=== PATIENT | male | born 1975 | race Caucasian/White ===

== ENCOUNTER 2017-03-02 21:47 | Emergency (ER) | payer BC ==
[2017-03-02 21:54] VITALS: BP 178/91; PULSE 74; RESP 18; TEMP 97.4
[2017-03-02] MEDS ORDERED: PROPARACAINE 0.5% OPHTH DROPS 15 ML BTL ONE (21:57)
[2017-03-02] MEDS ORDERED: PROPARACAINE 0.5% OPHTH DROPS 15 ML BTL LEFT EYE STA (21:57)
[2017-03-02] MEDS ORDERED: DIPH,PERTUS(ACELL)TETVAC-LF 0.5 ML VIAL IM ONE (22:02)
[2017-03-02] MEDS ORDERED: TOBRAMYCIN 0.3% OPHTH DROPS 5 ML BTL RIGHT EYE STA (22:02)
--- NOTE | 2017-03-02 22:04 | ED ---
Eye Problem HPI - General Chief complaint: Eye Problems Stated complaint: eye injury Time Seen by Provider: 03/02/17 21:56 Source: patient, RN notes reviewed Mode of arrival: ambulatory Limitations: no limitations - History of Present Illness Initial comments: 42-year-old male presents emergency Department chief complaint right eye pain. Patient states that his dog jumped oncrush his eye. Patient states his happened a few hours ago. Patient states she's unsure when his last tetanus was. Denies any blurred vision. Patient states it's riding filling. - Related Data Previous Rx's Medication Instructions Recorded Tobramycin [Tobrex 0.3% Ophth Soln] 1 drop RIGHT EYE Q4HR #5 ml 03/02/17 Allergies Allergy/AdvReac Type Severity Reaction Status Date / Time Penicillins AdvReac Unknown Verified 03/02/17 21:54 Review of Systems ROS Statement: Those systems with pertinent positive or pertinent negative responses have been documented in the HPI. ROS Other: All systems not noted in ROS Statement are negative. Past Medical History Past Medical History: Hypertension History of Any Multi-Drug Resistant Organisms: None Reported Past Surgical History: No Surgical Hx Reported Past Psychological History: No Psychological Hx Reported Smoking Status: Never smoker Past Alcohol Use History: Occasional Past Drug Use History: None Reported General Exam Limitations: no limitations General appearance: alert, in no apparent distress Head exam: Present: atraumatic, normocephalic, normal inspection Eye exam: Present: PERRL, EOMI, conjunctival injection (mild right), other ( patient had relief with proparacaine drops. Fluorescein dye and Wood's lamp was used to evaluate the right eye there is a corneal abrasion in the 6 o'clock position). Absent: normal appearance, scleral icterus, periorbital swelling ENT exam: Present: normal exam, normal oropharynx, mucous membranes moist, TM's normal bilaterally, normal external ear exam Neck exam: Present: normal inspection. Absent: tenderness, meningismus, lymphadenopathy Respiratory exam: Present: normal lung sounds bilaterally. Absent: respiratory distress, wheezes, rales, rhonchi, stridor Cardiovascular Exam: Present: regular rate, normal rhythm, normal heart sounds. Absent: systolic murmur, diastolic murmur, rubs, gallop, clicks Course Vital Signs 03/02/17 21:52 Temperature 97.4 F L Pulse Rate 74 Respiratory 18 Rate Blood Pressure 178/91 O2 Sat by Pulse 97 Oximetry Medical Decision Making - Medical Decision Making 42-year-old male presented for right eye pain. Patient has a corneal abrasion. Patient be discharged on Tobrex eyedrops return parameters were discussed. Patient informed to follow-up with ophthalmology within 48 hours if no improvement. Disposition Clinical Impression: Corneal abrasion, right Disposition: HOME SELF-CARE Condition: Stable Instructions: Corneal Abrasion (ED) Additional Instructions: Please return to the Emergency Department if symptoms worsen or any other concerns. Prescriptions: Tobramycin [Tobrex 0.3% Ophth Soln] 1 drop RIGHT EYE Q4HR #5 ml Referrals: Pign Jaramillo III, MD [Primary Care Provider] - 1-2 days Time of Disposition: 22:04
== END 2017-03-02 22:28 | disposition home or self-care (01) ==
LOC: EC 21:47
DX: S05.01XA Injury of conjunctiva and corneal abrasion without foreign body, right eye, initial encounter (principal); Z23 Encounter for immunization; Z88.0 Allergy status to penicillin; W55.89XA Other contact with other mammals, initial encounter
CPT/HCPCS: 90471; 90715; 99283

== ENCOUNTER 2018-11-21 14:11 | Emergency (ER) | payer BC ==
[2018-11-21 15:17] LABS: Basophils % (A) 1 %; Eosinophils # (A) 0.2 k/uL (0-0.7); Eosinophils % (A) 3 %; HCT 47.7 % (39.0-53.0); HGB 16.1 gm/dL (13.0-17.5); Lymphocytes # (A) 2.3 k/uL (1.0-4.8); Lymphocytes % (A) 33 %; MCH 30.7 pg (25.0-35.0); MCHC 33.8 g/dL (31.0-37.0); MCV 90.9 fL (80.0-100.0); Mean Platelet Volume 6.5; Monocytes # (A) 0.5 k/uL (0-1.0); Monocytes % (A) 7 %; Neutrophils # (A) 3.8 k/uL (1.3-7.7); Neutrophils % (A) 54 %; Platelet Count 283 k/uL (150-450); RBC 5.25 m/uL (4.30-5.90); RDW 13.2 % (11.5-15.5)
--- NOTE | 2018-11-21 15:20 | ED ---
General Adult HPI <Faustino Lopez - Last Filed: 11/21/18 18:05> - General Source: patient Mode of arrival: ambulatory Limitations: no limitations <Zeeshan Hoffman - Last Filed: 11/21/18 21:18> - General Chief complaint: Dizziness Stated complaint: Dizziness Time Seen by Provider: 11/21/18 14:34 - History of Present Illness Initial comments: 43-year-old male patient past medical history of hypertension presents to ED today with approximately 8 hours of mild dizziness, lightheadedness. Patient states that this morning he had some blurry vision which resolved. Patient denies any other complaints. Patient denies chest pain or shortness of breath. Patient denies syncope or presyncope. Patient denies abdominal pain. Patient was seen by an urgent care who recommended that she presented to ED for further evaluation. Systemic: Pt denies fatigue, myalgia, fever/chills, rash. Pt denies weakness, night sweats, weight loss. Neuro: Pt denies headache, visual disturbances, syncope or pre-syncope. HEENT: Pt denies ocular discharge or irritation, otalgia, rhinorrhea, pharyngitis or notable lymphadenopathy. Cardiopulmonary: Pt denies chest pain, SOB, heart palpitations, dyspnea on exertion. Abdominal/GI: Pt denies abdominal pain, n/v/d. : Pt denies dysuria, burning w/ urination, frequency/urgency. Denies new onset urinary or bowel incontinence. MSK: Pt denies myalgia, loss of strength or function in extremities. Neuro: Pt denies new onset weakness, paresthesias. (Zeeshan Hoffman) - Related Data Home Medications Medication Instructions Recorded Confirmed Metoprolol/Hydrochlorothiazide 1 tab PO HS 11/21/18 11/21/18 [Lopressor Hct 50-25 mg Tab] Allergies Allergy/AdvReac Type Severity Reaction Status Date / Time Penicillins AdvReac Unknown Verified 11/21/18 14:43 Review of Systems ROS Other: All systems not noted in ROS Statement are negative. <Faustino Lopez - Last Filed: 11/21/18 18:05> ROS Other: All systems not noted in ROS Statement are negative. <Zeeshan Hoffman - Last Filed: 11/21/18 21:18> ROS Statement: Those systems with pertinent positive or pertinent negative responses have been documented in the HPI. Past Medical History Past Medical History: Hypertension History of Any Multi-Drug Resistant Organisms: None Reported Past Surgical History: No Surgical Hx Reported Past Psychological History: No Psychological Hx Reported Smoking Status: Never smoker Past Alcohol Use History: Occasional Past Drug Use History: None Reported <Zeeshan Hoffman - Last Filed: 11/21/18 21:18> General Exam <Faustino Lopez - Last Filed: 11/21/18 18:05> Limitations: no limitations <Zeeshan Hoffman - Last Filed: 11/21/18 21:18> - General Exam Comments Initial Comments: Constitutional: NAD, AOX3, Pt has pleasant affect. HEENT: NC/AT, trachea midline, neck supple, no lymphadenopathy. Posterior pharynx non erythematous, without exudates. External ears appear normal, without discharge. Mucous membranes moist. Eyes PERRLA, EOM intact. There is no scleral icterus. No pallor noted. Cardiopulmonary: RRR, no murmurs, rubs or gallops, no JVD noted. Lungs CTAB in anterior and posterior wilkerson. No peripheral edema. Abdominal exam: Abdomen soft and non-distended. Abdomen non-tender to palpation in all 4 quadrants. Bowel sounds active in LLQ. No hepatosplenomegaly. No ecchymosis Neuro: CN II-XII intact. No nuchal rigidity. No focal deficit or facial droop. MSK: No posterior calf tenderness bilaterally, homans sign negative bilaterally. Posterior tibialis and radial pulse +2 bilaterally. Sensation intact in upper and lower extremities. Full active ROM in upper and lower extremities, 5/5 stregnth. (Zeeshan Hoffman) Course <Faustino Lopez - Last Filed: 11/21/18 18:05> <Zeeshan Hoffman - Last Filed: 11/21/18 21:18> Vital Signs 11/21/18 11/21/18 11/21/18 14:13 16:56 18:17 Temperature 97.9 F 97.7 F Pulse Rate 59 L 61 Pulse Rate [ 64 Right Sitting] Pulse Rate [ 58 L Right Standing] Pulse Rate [ 58 L Right Supine] Respiratory 18 16 Rate Blood Pressure 163/89 151/84 Blood Pressure 152/96 [Right Arm Sitting] Blood Pressure 156/87 [Right Arm Standing] Blood Pressure 141/80 [Right Arm Supine] O2 Sat by Pulse 98 97 Oximetry - Reevaluation(s) Reevaluation #1: 11/21/18 18:06 PA supervision: I personally do a [id number] evaluation the patient and did discuss the findings with him and his . The patient currently is awake alert oriented 3 no distress. We did discuss the lab results. I do agree with the assessment and plan. (Faustino Lopez) Medical Decision Making - Lab Data Result diagrams: 11/21/18 14:50 11/21/18 14:50 <Faustino Lopez - Last Filed: 11/21/18 18:05> - Lab Data Result diagrams: 11/21/18 14:50 11/21/18 14:50 <Zeeshan Hoffman - Last Filed: 11/21/18 21:18> - Medical Decision Making 43-year-old male patient past medical history of hypertension presents to ED today with approximately 8 hours of mild dizziness, lightheadedness. Patient states that this morning he had some blurry vision which resolved. Patient denies any other complaints. Patient denies chest pain or shortness of breath. Patient denies syncope or presyncope. Patient denies abdominal pain. Patient was seen by an urgent care who recommended that she presented to ED for further evaluation. Patient vital signs stable, afebrile. Physical exam test for acute pathology, neurologic exam within normal limits. CBC, CMP noncompressive. Mild elevation in AST ALT. CT brain without contrast didn't display any acute pathology. Repeat neuro exam within normal limits. Orthostatic blood pressure measurements were taken. It is possible that patient 's dizziness is secondary to an orthostatic component. Patient is also mildly bradycardiac, it is also possible that patient's dizziness is secondary to mild bradycardia. Patient to follow up with primary care provider in 1-2 days for continued evaluation. Patient to return to ED if new symptoms develop or condition worsens in any way. Case discussed in depth with Dr. Lopez. (Zeeshan Hoffman) - Lab Data Lab Results 11/21/18 11/21/18 11/21/18 Range/Units 14:50 14:50 14:50 WBC 7.0 (3.8-10.6) k/uL RBC 5.25 (4.30-5.90) m/uL Hgb 16.1 (13.0-17.5) gm/dL Hct 47.7 (39.0-53.0) % MCV 90.9 (80.0-100.0) fL MCH 30.7 (25.0-35.0) pg MCHC 33.8 (31.0-37.0) g/dL RDW 13.2 (11.5-15.5) % Plt Count 283 (150-450) k/uL Neutrophils % 54 % Lymphocytes % 33 % Monocytes % 7 % Eosinophils % 3 % Basophils % 1 % Neutrophils # 3.8 (1.3-7.7) k/uL Lymphocytes # 2.3 (1.0-4.8) k/uL Monocytes # 0.5 (0-1.0) k/uL Eosinophils # 0.2 (0-0.7) k/uL Basophils # 0.0 (0-0.2) k/uL Sodium 139 (137-145) mmol/L Potassium 3.8 (3.5-5.1) mmol/L Chloride 104 (98-107) mmol/L Carbon Dioxide 25 (22-30) mmol/L Anion Gap 10 mmol/L BUN 18 (9-20) mg/dL Creatinine 0.92 (0.66-1.25) mg/dL Est GFR (CKD-EPI)AfAm >90 (>60 ml/min/1.73 sqM) Est GFR (CKD-EPI)NonAf >90 (>60 ml/min/1.73 sqM) Glucose 95 (74-99) mg/dL Calcium 9.7 (8.4-10.2) mg/dL Magnesium 1.8 (1.6-2.3) mg/dL Total Bilirubin 0.8 (0.2-1.3) mg/dL AST 63 H (17-59) U/L ALT 86 H (21-72) U/L Alkaline Phosphatase 89 (38-126) U/L Total Protein 8.5 H (6.3-8.2) g/dL Albumin 4.6 (3.5-5.0) g/dL Disposition <Faustino Lopez - Last Filed: 11/21/18 18:05> Is patient prescribed a controlled substance at d/c from ED?: No <Zeeshan Hoffman - Last Filed: 11/21/18 21:18> Clinical Impression: Dizziness Disposition: HOME SELF-CARE Condition: Stable Instructions (If sedation given, give patient instructions): Dizziness (ED) Additional Instructions: Patient to adhere to previously discussed treatment plan and will take medication(s) as directed. Patient to follow up with PCP in 1-2 days. Patient to return to ED if symptoms do not improve. Please follow-up with primary care provider tomorrow. Please return to ER if condition worsens in any way. Referrals: Ping Jaramillo III, MD [Primary Care Provider] - 1-2 days
[2018-11-21 15:30] LABS: ALT 86 U/L (21-72); AST 63 U/L (17-59); Albumin 4.6 g/dL (3.5-5.0); Alkaline Phosphatase 89 U/L (38-126); Anion Gap 10 mmol/L; Blood Urea Nitrogen 18 mg/dL (9-20); Calcium 9.7 mg/dL (8.4-10.2); Carbon Dioxide 25 mmol/L (22-30); Chloride 104 mmol/L (98-107); Glucose 95 mg/dL (74-99); Potassium 3.8 mmol/L (3.5-5.1); Sodium 139 mmol/L (137-145); Total Bilirubin 0.8 mg/dL (0.2-1.3); Total Protein 8.5 g/dL (6.3-8.2)
--- NOTE | 2018-11-21 16:04 | CT ---
EXAMINATION TYPE: CT brain wo con DATE OF EXAM: 11/21/2018 COMPARISON: None HISTORY: Patient complains of dizziness and blurry vision CT DLP: 1023.4 mGycm. Automated Exposure Control for Dose Reduction was Utilized. TECHNIQUE: CT scan of the head is performed without contrast. FINDINGS: There is no acute intracranial hemorrhage, mass effect, or midline shift identified. The ventricles and sulci are within normal limits in size. The globes are intact and the visualized sin uses are clear. Cerebral vascular calcifications are present. IMPRESSION: No acute intracranial hemorrhage, mass effect, or midline shift is seen.
[2018-11-21] MEDS ORDERED: POTASSIUM CHLORIDE ER 10 MEQ TAB.ER.PRT PO STA (17:44)
[2018-11-21 18:19] VITALS: BP 151/84; PULSE 61; RESP 16; TEMP 97.7
--- NOTE | 2018-11-23 01:57 | ED ---
Medical Decision Making - Medical Decision Making At recommendation of attending Physician Dr. Lopez. Another possible etiology of patients dizziness is potassium being borderline low. Patient prescribed 1 week of potassium supplementation until follow up with PCP. - Lab Data Result diagrams: 11/21/18 14:50 11/21/18 14:50 Lab Results 11/21/18 11/21/18 11/21/18 Range/Units 14:50 14:50 14:50 WBC 7.0 (3.8-10.6) k/uL RBC 5.25 (4.30-5.90) m/uL Hgb 16.1 (13.0-17.5) gm/dL Hct 47.7 (39.0-53.0) % MCV 90.9 (80.0-100.0) fL MCH 30.7 (25.0-35.0) pg MCHC 33.8 (31.0-37.0) g/dL RDW 13.2 (11.5-15.5) % Plt Count 283 (150-450) k/uL Neutrophils % 54 % Lymphocytes % 33 % Monocytes % 7 % Eosinophils % 3 % Basophils % 1 % Neutrophils # 3.8 (1.3-7.7) k/uL Lymphocytes # 2.3 (1.0-4.8) k/uL Monocytes # 0.5 (0-1.0) k/uL Eosinophils # 0.2 (0-0.7) k/uL Basophils # 0.0 (0-0.2) k/uL Sodium 139 (137-145) mmol/L Potassium 3.8 (3.5-5.1) mmol/L Chloride 104 (98-107) mmol/L Carbon Dioxide 25 (22-30) mmol/L Anion Gap 10 mmol/L BUN 18 (9-20) mg/dL Creatinine 0.92 (0.66-1.25) mg/dL Est GFR (CKD-EPI)AfAm >90 (>60 ml/min/1.73 sqM) Est GFR (CKD-EPI)NonAf >90 (>60 ml/min/1.73 sqM) Glucose 95 (74-99) mg/dL Calcium 9.7 (8.4-10.2) mg/dL Magnesium 1.8 (1.6-2.3) mg/dL Total Bilirubin 0.8 (0.2-1.3) mg/dL AST 63 H (17-59) U/L ALT 86 H (21-72) U/L Alkaline Phosphatase 89 (38-126) U/L Total Protein 8.5 H (6.3-8.2) g/dL Albumin 4.6 (3.5-5.0) g/dL Disposition Clinical Impression: Dizziness Disposition: HOME SELF-CARE Condition: Stable Instructions (If sedation given, give patient instructions): Dizziness (ED) Additional Instructions: Patient to adhere to previously discussed treatment plan and will take medication(s) as directed. Patient to follow up with PCP in 1-2 days. Patient to return to ED if symptoms do not improve. Please follow-up with primary care provider tomorrow. Please return to ER if condition worsens in any way. Prescriptions: Potassium Chloride ER [K-Dur 10] 10 meq PO DAILY 7 Days #7 tab Is patient prescribed a controlled substance at d/c from ED?: No Referrals: Ping Jaramillo III, MD [Primary Care Provider] - 1-2 days
== END 2018-11-21 18:20 | disposition home or self-care (01) ==
LOC: EC 14:11
DX: R42 Dizziness and giddiness (principal); I10 Essential (primary) hypertension; Z79.899 Other long term (current) drug therapy; Z88.0 Allergy status to penicillin
CPT/HCPCS: 36415; 70450; 80053; 83735; 85025; 93005; 99284

== ENCOUNTER 2021-08-02 18:42 | Emergency (ER) | payer BC ==
--- NOTE | 2021-08-02 19:58 | ED ---
General Adult HPI - General Chief complaint: Upper Respiratory Infection Stated complaint: Fever,Congestion,Headache Time Seen by Provider: 08/02/21 19:44 Source: patient, RN notes reviewed, old records reviewed Mode of arrival: ambulatory Limitations: no limitations - History of Present Illness Initial comments: Well-appearing 46-year-old male, alert and oriented 4, presents to the emergency room with complaints of headache, congestion and fever since last night. He states that he took an at home Covid test and it was positive. Patient states that he did get vaccinated against Covid in November. 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 Her test was negative. He states he has had a decreased appetite, some nausea but no vomiting. He does have a history of hypertension. His A1c has been elevated at 7.5 however his PCP has not diagnosed him as diabetic yet. He states that he does take Jardience. -: days(s) (2) Location: head Severity scale (1-10): 3 Quality: aching Consistency: constant Improves with: none Associated Symptoms: cough, fever/chills, headaches, other (congestion) - Related Data Home Medications Medication Instructions Recorded Confirmed Metoprolol/Hydrochlorothiazide 1 tab PO HS 11/21/18 11/21/18 [Lopressor Hct 50-25 mg Tab] Previous Rx's Medication Instructions Recorded Potassium Chloride ER [K-Dur 10] 10 meq PO DAILY 7 Days #7 tab 11/23/18 Allergies Allergy/AdvReac Type Severity Reaction Status Date / Time Penicillins AdvReac Unknown Verified 08/02/21 19:06 Review of Systems ROS Statement: Those systems with pertinent positive or pertinent negative responses have been documented in the HPI. ROS Other: All systems not noted in ROS Statement are negative. Past Medical History Past Medical History: Hypertension History of Any Multi-Drug Resistant Organisms: None Reported Past Surgical History: No Surgical Hx Reported Past Psychological History: No Psychological Hx Reported Smoking Status: Never smoker Past Alcohol Use History: Occasional Past Drug Use History: None Reported General Exam Limitations: no limitations General appearance: alert, in no apparent distress Head exam: Present: atraumatic, normocephalic, normal inspection Eye exam: Present: normal appearance, EOMI. Absent: scleral icterus, conjunctival injection, periorbital swelling ENT exam: Present: normal exam, normal oropharynx, mucous membranes moist Neck exam: Present: normal inspection, full ROM. Absent: tenderness, meningismus, lymphadenopathy Respiratory exam: Present: normal lung sounds bilaterally. Absent: respiratory distress, wheezes, rales, rhonchi, stridor Cardiovascular Exam: Present: regular rate, normal rhythm, normal heart sounds. Absent: systolic murmur, diastolic murmur, rubs, gallop, clicks GI/Abdominal exam: Present: soft, normal bowel sounds. Absent: distended, tenderness, guarding, rebound, rigid Back exam: Present: normal inspection, full ROM. Absent: tenderness, CVA tenderness (R), CVA tenderness (L), rash noted Neurological exam: Present: alert, oriented X3 Psychiatric exam: Present: normal affect, normal mood Skin exam: Present: warm, dry, intact, normal color. Absent: rash, cyanosis, diaphoretic Course Vital Signs 08/02/21 08/02/21 19:04 23:19 Temperature 100.0 F H 98.9 F Pulse Rate 66 62 Respiratory 19 16 Rate Blood Pressure 147/74 139/88 O2 Sat by Pulse 97 97 Oximetry Medical Decision Making - Medical Decision Making This is a well-appearing 46-year-old male, alert and oriented 4, developed symptoms of fever cough and congestion last night. Today he took an at home Covid test that was positive. He was given monoclonal antibodies due to his history of hypertension and obesity. His vital signs are stable. He'll be discharged home and directed to return to the emergency room with any new or worsening symptoms. Follow up with his primary care doctor in 1 week. Self quarantine for 10 days from symptom onset. Case discussed with Dr. Lomas Disposition Clinical Impression: COVID-19 Disposition: HOME SELF-CARE Instructions (If sedation given, give patient instructions): Coronavirus Disease 2019 (COVID-19) Additional Instructions: Take Tylenol and/or Motrin as needed for body aches or fevers. Self quarantine for 10 days after symptom onset and 24 hours without fever. Return to the emergency room with any new or worsening symptoms Is patient prescribed a controlled substance at d/c from ED?: No Referrals: Ping Jaramillo III, MD [Primary Care Provider] - 1-2 days
[2021-08-02] MEDS ORDERED: ACETAMINOPHEN TAB 325 MG TAB PO STA (20:39)
--- NOTE | 2021-08-02 20:58 | XR ---
EXAMINATION TYPE: XR chest 2V DATE OF EXAM: 08/02/2021 COMPARISON: NONE HISTORY: Fever and cough TECHNIQUE: 2 views FINDINGS: Heart and mediastinum are normal. Lungs are clear. Diaphragm is normal. Bony thorax is inta ct. IMPRESSION: Normal chest.
[2021-08-02] MEDS ORDERED: SODIUM CHLORIDE 0.9% 50 ML IVPB ONE (21:30)
[2021-08-02] MEDS ORDERED: CASIRIVIMAB/IMDEVIMAB (EUA) 1,200 MG in SODIUM CHLORIDE 0.9% 100 ML IVPB ONE (21:30)
[2021-08-02 23:21] VITALS: BP 139/88; PULSE 62; RESP 16; TEMP 98.9
== END 2021-08-03 00:04 | disposition home or self-care (01) ==
LOC: EC 18:42
DX: U07.1 COVID-19 (principal); I10 Essential (primary) hypertension; Z79.899 Other long term (current) drug therapy
CPT/HCPCS: 71046; 99284; 96365; 96366; Q0243